=== PATIENT | male | born 1970 | race Caucasian/White ===

== ENCOUNTER → 2016-06-15 | Outpatient (CLI) | payer OTHER ==
--- NOTE | 2016-06-15 14:11 | PAP/PSG TECHNICIAN REPORT ---
[facility] [place] Polysomnogram Report Study name: None Report date: 06/15/2016 Study date: 06/15/2016 Referring Physician: Sophia Kate M.D. Name: COLEMAN ARRINGTON Interpreting Physician: Jf Kate M.D. Date of : 1970 [place]: Latricia Bowden [facility]. Sex: Male Age: 46 StudyType: PSG Weight: 226 lbs Height: 46 years, Height 6' 0" Neck Circum: BMI: 30.65 Medications: NONE LISTED Patient History Patient has a history of tinnitus that he says makes it difficult for him to fall asleep. He complains of being tired all the time due to not sleeping. 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 He does think he snores but denies any gasping for breath or apneas. He occasionally wakes with a headache. Patient was in the [employer] and worked with jet engines and noticed tinnitus after that time. He stated that he does not sleep well and once awake has difficulty going back to sleep. For this reason, he refused a split study. ETCO2 monitoring was used. ESS=11 Parameters Monitored NPSG: E1-M2, E2-M1, Fp1-M2, Fp2-M1, F3-M2, F4-M2, F4-M1, C3-M2, C4-M2, C4-M1, O1-M2, O2-M2, O2-M1, T3-M2, T4-M1, P3-M2, P4-M1, CHIN1, CHIN2, HR, EKG, Legs, PFLOW, SNOR, FLOW, CFLOW, Tidal Volume, THOR, ABDO, SpO2, PLTH, CPRESS, ETCO2 Wave, ETCO2, pH Sleep Architecture Sleep Stages Time at Lights Off 8:37:51 AM STAGES Time (min.) TST (%) Time at Lights On 1:20:51 PM Wake 21.5 -- Total Recording Time (TRT) 283.50 min. N1 9.5 4 Total Sleep Period (TSP) 272.0 min. N2 172.5 66 Total Sleep Time (TST) 261.5min. N3 58.0 22 Awake Time 22.0 min. REM 21.5 8 Wake after Sleep Onset 16.0 min. Sleep Efficiency (SE) 92 % Sleep Onset Latency (FAB) 5.5 min. Number of Stage 1 Shifts None Awakenings 12 Stage Changes 63 Number of REM periods 6 REM 21.5 8 REM Latency 91.5 min. NREM 240.0 92 Body Position Analysis Supine Right Left Side Prone Vertical Total Sleep Time (min.) 283.0 0.0 0.0 0.00 0.0 0.0 Total Sleep Time (%) 100% 0% 0% 0 0% N/A% Total Sleep Time REM (min.) 21.5 0.0 0.0 None 0.0 0.0 Total Sleep Time NREM (min.) 240.0 0.0 0.0 None 0.0 0.0 Intermittent Wake (min.) 21.5 0.0 0.0 None 0.0 0.0 Total Sleep Period (%) 100% None None None None None Arousals Myoclonus (PLM) * Events Count Index Events Count Index Spontaneous 2 0 Events Awake (PLMW) 0 0.0 Respiratory 3 0.7 Events Asleep w/ Arousal (PLMA) 1 0.2 PLM 1 0 Events Asleep w/o Arousal (PLMS) 12 2.8 Snoring 0 0 Total Asleep 13 3.0 Total 6 1 Total 13 3 Respiratory Analysis * CA OA MA CH H RERA Total Count 0 1 0 0 17 0 18 Index 0.0 0.2 0.0 0 3.9 0 4.1 Mean Duration 0.0 18.9 0.0 0.00 19.2 0.0 19.2 Longest Duration 0.0 18.9 0.0 0.00 0.0 0.0 33.4 Respiratory Event Summary Total Supine ~Supine Right Left Prone REM NREM Apneas Count 1 1 N/A N/A N/A N/A 1 0 Index 0.2 0 N/A N/A N/A N/A 3 0 Hypopneas (4% Desat) Count 17 17 N/A N/A N/A N/A 7 10 Index 3.9 3.9 N/A N/A N/A N/A 19.5 2.5 Apneas & All Hypopneas Count 18 18 N/A N/A N/A N/A 8 10 Index 4.1 4 N/A N/A N/A N/A 22.3 2.5 Respiratory Events (Front Desk Supervisor+All Hyp+RERA) Count 18 18 N/A N/A N/A N/A 8 10 Index 4.1 4 N/A N/A N/A N/A 22.3 2.5 Respiratory Related Arousal Count 3 18 N/A N/A N/A N/A 1 2 Index 0.7 1 N/A N/A N/A N/A 3 1 Snoring Analysis Supine Right Left Prone REM NREM Total Snore duration 64.1 min Snores count 2,273 N/A N/A N/A 158 2,115 2,273 Snore mean duration 1.7 Sec Snores index 522 N/A N/A N/A 440.9 528.8 521.5 TST with snoring (%) 24.5% SpO2 Analysis Total REM NREM Awake <50% 0.0 min. 0.0 min. 0.0 min. 0.0 min. 51 - 60% 0.0 min. 0.0 min. 0.0 min. 0.0 min. 61 - 70% 0.0 min. 0.0 min. 0.0 min. 0.0 min. 71 - 80% 0.0 min. 0.0 min. 0.0 min. 0.0 min. 81 - 90% 10.3 min. 1.9 min. 8.2 min. 0.2 min. 91 - 100% 272.6 min. 19.6 min. 231.8 min. 21.1 min. Average 92 92 92 94 Minimum SpO2 81 85 81 85 Desaturation Event Index 3.4 16.7 2.5 0.0 # Desat. Events below 89% 4 1 3 0 Time(%) with Saturation below 89% 0.6 0.2 0.3 0.1 Time(min.) with Saturation below 89% 1.6 0.4 1.0 0.2 Heart Rate Analysis End Tidal CO2 Analysis Min (bpm) Max (bpm) Average (bpm) TSP (mins) % of TSP Awake 46 127 58 Above 55 mmHg 0.0 0.0 NREM 47 74 54 50-55 mmHg 0.0 0.0 REM 49 71 57 45-50 mmHg 22.8 8.7 Overall 47 74 54 40-45 mmHg 224.8 86.0 35-40 mmHg 11.9 4.6 30-35 mmHg 1.7 0.7 Average ETCO2 0.0 Supplemental O2 Values Minimum O2 level: None Value Start Time End Time [place] Comments Mr. Arrington slept in the supine position the whole test. No cardiac arrhythmias were noted. No leg movements were noted. No bruxism seen. Snoring was noted as a 2-3 on a scale of 0 through 5 (0=no snoring, 5=snoring loud enough to be heard through a closed door or down the hallway). Mr Arrington stated he slept about the same as he usually does. At about 1320, after a little over 4 hours of sleep, patient woke and stated that he was up for the day and would like to end test. Some hypopneas were seen, most of these did occur during REM. His first REM was fragmented and only lasted a minute or two. The final report will be interpreted and signed by a sleep physician. The completed physician report will then be placed in the patient medical record. Therapy (cm H2O) 0 TIB (min.) 283.0 TST (min.) 261.5 Sleep Onset (min.) 5.5 REM Onset From Sleep (min.) 91.5 Sleep Efficiency % 92 Wakefulness (%) 8 Wakefulness (min.) 22.0 NREM 1 (%) 4 NREM 1 (min.) 9.5 NREM 2 (%) 66 NREM 2 (min.) 172.5 NREM 3 (%) 22 NREM 3 (min.) 58.0 REM (%) 8 REM (min.) 21.5 # Arousals 6 Arousal Index 1 # Snore 2,273 Snore Index 521.5 AHI 4.1 AHI Supine 4 AHI Non-Supine N/A NREM AHI 2.5 REM AHI 22.3 RDI 4.1 # Obstructive Apnea 1 # Central Apnea 0 # Mixed Apnea 0 # Hypopneas 17 RERAs 0 Total Respiratory Events 18 Time Below SpO2 89% (min.) 1.4 Mean NREM SpO2 (%) 92 Mean REM SpO2 (%) 92 Mean Sleep SpO2 (%) 92 Min NREM SpO2 (%) 81 Min REM SpO2 (%) 85 Position Supine (min.) 283.0 Position Non-supine (min.) 0.0 LM Index Sleep 3.0 LM Index NREM 1.8 LM Index REM 16.7 Mean Heart Rate (bpm) 54 Min Heart Rate (bpm) 47
--- NOTE | 2016-06-27 08:03 | POLYSOMNOGRAPH REPORT ---
REFERRING PERSON: Dr. Davon Kate. PHOTOVOLTAIC TECHNICIAN: Latricia Bowden. Mr. Olivares is a 46-year-old male who has a history of tinnitus which makes it difficult for him to fall asleep. He complains of being tired all the time due to not sleeping. He works night coordinator. He does snore. He denies gasping or choking arousals. He often wakes with a headache. His [place] sleepiness scale score on the evening of this study is 11. BMI is 30.65. Following the technical and digital specifications of the [place] [employer] (AASM) a standard diagnostic polysomnogram was performed monitoring EEG, EOG, EMG (chin and leg deviations), oxygen saturation, body position, digital video, respiratory effort and airflow. The sleep Stage and event scoring was based on the AASM Manual for the Scoring of Sleep and Associated Events 2007 edition. Apneas are defined as a drop in the peak thermal sensor excursion by >90% of baseline for at least 10 seconds. Hypopneas were scored using the 4% oxygen desaturation rule (4A-[employer]ic[employer]) and a decrease in the nasal pressure excursions by >30% of baseline for at least 10 seconds. Respiratory effort-related arousal (RERA's) is defined as a sequence of breaths lasting at least 10 seconds characterized by increasing respiratory effort or flattening of the nasal pressure waveform leading to an arousal from sleep when the sequence of breaths does not meet criteria for an apnea or hypopnea. Apnea Hypopnea index (AHI) is defined as the number of apneas and hypopneas occurring in an hour of sleep. Respiratory disturbance index (RDI) is defined as the number of apneas, hypopneas, and RERA's occurring in an hour of sleep. This patient's total sleep period time was 272 minutes. Total sleep time was 261.5 minutes. Sleep efficiency was 92%. Latency to sleep onset was 5.5 minutes with wake after sleep onset was 16 minutes. Total non-REM sleep time was 240 minutes. He spent 4% of that time in N1 sleep, 66% in N2 sleep and 22% in N3 sleep. REM latency was 91.5 minutes. Total REM sleep time was 21.5 minutes or 8% of total sleep time. There were 66 cortical arousals from sleep. Two of these arousals were spontaneous, 3 were due to respiratory events, 1 was due to a periodic limb movement. There were 13 periodic limb movements noted. Limb movement index was 3. Limb movement with arousal index was 0.2. On this sleep study, there was 1 obstructive apnea, no central apneas and no mixed apneas. There were 17 hypopnea and no RERA. Apnea-hypopnea index was normal at 4.1. REM AHI was 22.4 and supine AHI was 4. There were 2273 snoring events recorded. Total sleep time with snoring was 24.5%. Mean saturation during sleep was 92% with desaturations to 81%; however, this was transient. Saturations were less than 89 for only 1.6 minutes of recorded time. There was no cardiac ectopy noted. Heart rates ranged from a low of 47 beats per minute to a high of 74 beats per minute during sleep. End-tidal CO2 was recorded on this test. End-tidal CO2s were between 45 and 50 mmHg for 8.7% of total sleep period time, between 40 and 45 mmHg for 86%, between 35 and 40 mmHg for 4.6% and between 30 and 35 mmHg for 0.7% of total sleep period time. Per the technologist notes, at 1:20 p.m. after about 4 hours of sleep, this patient woke up and said that he would be up for the rest of the day and requested that the test be ended at that time. IMPRESSION AND PLAN: 46-year-old male without evidence of sleep disordered breathing on this sleep study. This was performed during the day which is this patient's usual sleep period. He did not have nocturnal hypoxemia, bruxism, parasomnia or clinically significant periodic limb movements of sleep either.
== END | disposition home or self-care (01) ==
LOC: C.NEUR 07:30
PROVIDERS: ATTEND Family Medicine
DX: E66.9 Obesity, unspecified (principal); R06.83 Snoring; G47.09 Other insomnia